=== PATIENT | male | born 1990 | race Two or more races ===

== ENCOUNTER 2016-08-25 00:57 | Emergency (ER) | payer MEDICAID, OTHER ==
[~2016-08-25] VITALS: Ht 185.4 cm; Wt 108.4 kg
[2016-08-25 01:23] VITALS: BP 144/84
[2016-08-25] MEDS ORDERED: KETOROLAC TROMETH 60MG/2ML VIAL IM ONE (02:30)
== END 2016-08-25 04:38 | disposition home or self-care (01) ==
LOC: ER 00:57
DX: M54.2 Cervicalgia (principal); M54.9 Dorsalgia, unspecified; V43.52XA Car driver injured in collision with other type car in traffic accident, initial encounter; Y93.89 Activity, other specified; Y99.8 Other external cause status; Y92.89 Other specified places as the place of occurrence of the external cause
CPT/HCPCS: 72125; 96372; 99284; J1885